=== PATIENT | female | born 1985 | race Two or more races ===

== ENCOUNTER 2023-08-16 17:38 | Emergency (ER) | payer BC, OTHER ==
[~2023-08-16] VITALS: Ht 170.2 cm; Wt 56.0 kg
[2023-08-16] MEDS ORDERED: IBUPROFEN 600 MG TAB PO ONE (20:30)
[2023-08-16 22:07] VITALS: BP 109/69; PULSE 90; RESP 16; TEMP 98.5; O2SAT 98
== END 2023-08-16 21:01 | disposition home or self-care (01) ==
LOC: ER 17:38
DX: S52.592A Other fractures of lower end of left radius, initial encounter for closed fracture (principal); S52.612A Displaced fracture of left ulna styloid process, initial encounter for closed fracture; W18.39XA Other fall on same level, initial encounter; Y93.23 Activity, snow (alpine) (downhill) skiing, snowboarding, sledding, tobogganing and snow tubing; Y92.89 Other specified places as the place of occurrence of the external cause; Y99.8 Other external cause status
CPT/HCPCS: 29125; 73110